=== PATIENT | male | born 1955 | race Caucasian/White ===

== ENCOUNTER 2022-01-23 21:50 | Outpatient (CLI) | payer MEDICARE, SELFPAY | END 2022-01-23 21:51 | disposition home or self-care (01) | LOC: AMB 03-17 15:29 | PROVIDERS: Visit Provider Family Medicine | DX: R53.1 Weakness (principal) | CPT/HCPCS: A0425; A0427 ==

== ENCOUNTER 2024-08-23 15:35 | Outpatient (CLI) | payer MEDICARE, SELFPAY | END 2024-08-23 15:36 | disposition home or self-care (01) | LOC: AMB 08-26 10:58 | PROVIDERS: Visit Provider Emergency Medicine | DX: R53.1 Weakness (principal) | CPT/HCPCS: A0425; A0429 ==